=== PATIENT | female | born 1945 | race Two or more races ===

== ENCOUNTER 2022-07-02 11:36 | Inpatient (IN) | payer OTHER ==
[~2022-07-02] VITALS: Ht 170.2 cm; Wt 84.4 kg
[2022-07-02] MEDS ORDERED: LEVOTHYROXINE25 MCG PO (11:43)
[2022-07-02] MEDS ORDERED: HYZAAR 100-12.1 EACH PO (11:43)
--- NOTE | 2022-07-02 11:44 | NUR ---
SE RECIBE PTE ALERTA Y ORIENTADA X3 CUAL REFIERE DOLOR ABDMINAL LADO IZQ CUADRANTE INFERIOR RELACIONADO A HX DE DIVERTICULOS. SE ENMA S/V Y SE UBICA. PTE DE .
--- NOTE | 2022-07-02 13:01 | NUR ---
PTE LLEGA EN AMBULANCIA POR DOOLOR ABDOMINAL SE ACOMODA EN MAE .SE OBSERVA PTE CON IVF;S PATENTE . ES EVALUADA POR EL ,SAMUEL TOM ORDENA TREATAMIENTOA LA CUAL SE EJECUTA POR MS.ORTIZ URIBE . SE MANTIENE BAJO OBSERVAICON.
== END 2022-07-05 16:21 | disposition home or self-care (01) | DRG 392 ==
LOC: ER 11:36 → MEDI 20:27
PROVIDERS: ADMIT Internal Medicine; ATTEND Internal Medicine
PROC: BW21ZZZ Computerized Tomography (CT Scan) of Abdomen and Pelvis (ICD-10-PCS; principal; 2022-07-02)
DX: K57.20 Diverticulitis of large intestine with perforation and abscess without bleeding (principal); I10 Essential (primary) hypertension; E03.9 Hypothyroidism, unspecified; D64.9 Anemia, unspecified

== ENCOUNTER 2022-08-06 13:47 | Inpatient (IN) | payer OTHER ==
[~2022-08-06] VITALS: Ht 170.2 cm; Wt 83.0 kg
[~2022-08-06 13:47] MED LIST: HYZAAR 100-12.1 EACH PO; LEVOTHYROXINE25 MCG PO
== END 2022-08-13 15:59 | disposition home or self-care (01) | DRG 291 ==
LOC: ER 13:47 → MEDJ 22:12
PROVIDERS: ADMIT Internal Medicine; ATTEND Internal Medicine
PROC: 4A12X4Z Monitoring of Cardiac Electrical Activity, External Approach (ICD-10-PCS; principal; 2022-08-06)
PROC: B24BYZZ Ultrasonography of Heart with Aorta using Other Contrast (ICD-10-PCS; 2022-08-06)
PROC: BW2410Z Computerized Tomography (CT Scan) of Chest and Abdomen using Low Osmolar Contrast, Unenhanced and Enhanced (ICD-10-PCS; 2022-08-08)
PROC: B54DZZZ Ultrasonography of Bilateral Lower Extremity Veins (ICD-10-PCS; 2022-08-10)
DX: I11.0 Hypertensive heart disease with heart failure (principal); I26.99 Other pulmonary embolism without acute cor pulmonale; I50.31 Acute diastolic (congestive) heart failure; E87.21 Acute metabolic acidosis; I82.4Z3 Acute embolism and thrombosis of unspecified deep veins of distal lower extremity, bilateral; D63.8 Anemia in other chronic diseases classified elsewhere; D64.9 Anemia, unspecified; E03.9 Hypothyroidism, unspecified; Z86.16 Personal history of COVID-19; I27.20 Pulmonary hypertension, unspecified
CPT/HCPCS: 71275

== ENCOUNTER 2022-12-01 09:15 | Outpatient (CLI) | payer OTHER | END 2022-12-01 09:33 | disposition home or self-care (01) | LOC: TOM 09:15 | PROVIDERS: ATTEND Surgery | DX: R10.11 Right upper quadrant pain (principal) | CPT/HCPCS: 74178; Q9965 ==

== ENCOUNTER 2023-05-14 08:58 | Outpatient (CLI) | payer OTHER | END 2023-05-14 09:04 | disposition home or self-care (01) | LOC: NUCLEAR 08:58 | PROVIDERS: ATTEND Internal Medicine Hematology & Oncology | DX: D53.0 Protein deficiency anemia (principal); D51.3 Other dietary vitamin B12 deficiency anemia; D50.8 Other iron deficiency anemias; E55.9 Vitamin D deficiency, unspecified; R97.0 Elevated carcinoembryonic antigen [CEA]; B96.81 Helicobacter pylori [H. pylori] as the cause of diseases classified elsewhere; K57.30 Diverticulosis of large intestine without perforation or abscess without bleeding; I10 Essential (primary) hypertension; R92.0 Mammographic microcalcification found on diagnostic imaging of breast; E11.9 Type 2 diabetes mellitus without complications; M54.50 Low back pain, unspecified; N63.23 Unspecified lump in the left breast, lower outer quadrant ==

== ENCOUNTER 2024-03-16 06:43 | Day surgery (SDC) | payer OTHER ==
[2024-03-16] MEDS ORDERED: fentaNYL CITRATE 50 MCG/ML AMPUL IV ONE (07:45)
[2024-03-16] MEDS ORDERED: MIDAZOLAM HCL 2 MG/2 ML VIAL IV ONE (07:45)
[2024-03-16] MEDS ORDERED: DIPHENHYDRAMINE HCL 50 MG/ML VIAL 1ML IV ONE (07:45)
== END 2024-03-16 10:15 | disposition home or self-care (01) ==
LOC: AMB-ENDOS 06:43
PROVIDERS: ATTEND Surgery
DX: K57.30 Diverticulosis of large intestine without perforation or abscess without bleeding (principal); K62.5 Hemorrhage of anus and rectum; R19.4 Change in bowel habit; K63.2 Fistula of intestine

== ENCOUNTER → 2024-05-23 | Outpatient (CLI) | payer OTHER | END | disposition home or self-care (01) | LOC: MAMO-SONO 09:55 | PROVIDERS: ATTEND Internal Medicine Hematology & Oncology | DX: N63.0 Unspecified lump in unspecified breast (principal); Z12.31 Encounter for screening mammogram for malignant neoplasm of breast; N64.4 Mastodynia; D53.0 Protein deficiency anemia; D51.3 Other dietary vitamin B12 deficiency anemia; D50.8 Other iron deficiency anemias; E55.9 Vitamin D deficiency, unspecified; B96.81 Helicobacter pylori [H. pylori] as the cause of diseases classified elsewhere; K57.30 Diverticulosis of large intestine without perforation or abscess without bleeding; I10 Essential (primary) hypertension; R92.0 Mammographic microcalcification found on diagnostic imaging of breast; E11.9 Type 2 diabetes mellitus without complications; M54.50 Low back pain, unspecified; N63.23 Unspecified lump in the left breast, lower outer quadrant; N63.10 Unspecified lump in the right breast, unspecified quadrant; N63.20 Unspecified lump in the left breast, unspecified quadrant; I26.99 Other pulmonary embolism without acute cor pulmonale ==

== ENCOUNTER 2024-07-24 08:08 | Outpatient (CLI) | payer OTHER ==
[2024-07-27 10:05] LABS: BETA-2-MICROGLOBULINA 1.8 mg/L (0.6-2.4)
== END 2024-07-24 08:09 | disposition home or self-care (01) ==
LOC: LAB 08:08
PROVIDERS: ATTEND Internal Medicine Hematology & Oncology
DX: D50.8 Other iron deficiency anemias (principal); D53.0 Protein deficiency anemia; D51.3 Other dietary vitamin B12 deficiency anemia; E55.9 Vitamin D deficiency, unspecified; R97.0 Elevated carcinoembryonic antigen [CEA]; B96.81 Helicobacter pylori [H. pylori] as the cause of diseases classified elsewhere; K57.30 Diverticulosis of large intestine without perforation or abscess without bleeding; I10 Essential (primary) hypertension; R92.0 Mammographic microcalcification found on diagnostic imaging of breast; E11.9 Type 2 diabetes mellitus without complications; M54.50 Low back pain, unspecified; N63.23 Unspecified lump in the left breast, lower outer quadrant; N63.10 Unspecified lump in the right breast, unspecified quadrant; N63.20 Unspecified lump in the left breast, unspecified quadrant; I26.99 Other pulmonary embolism without acute cor pulmonale; I80.222 Phlebitis and thrombophlebitis of left popliteal vein

== ENCOUNTER 2024-12-19 08:37 | Emergency (ER) | payer OTHER ==
[~2024-12-19] VITALS: Ht 167.6 cm; Wt 95.3 kg
[2024-12-19] MEDS ORDERED: LEVALBUTEROL HCL 1.25 MG/3 ML SOLUTION IH STA (09:59)
[2024-12-19 10:37] LABS: BASO % 0.7 % (0.1-1.2); EOS # 0.07 (0.04-0.54); HEMATOCRIT 41.4 % (34.1-44.9); HEMOGLOBIN 13.3 g/dL (11.2-15.7); LYMPH # 1.13 (1.18-3.74); LYMPH % 16.5 % (19.3-53.1); MEAN CORPUSCULAR HEMOGLOBIN 29.2 pg (25.6-32.2); MONO # 0.47 (0.24-0.82); MONO % 6.9 % (4.7-12.5); NEUT % 74.6 % (34.0-71.1); PLATELET COUNT 365 K/uL (163-369); RED BLOOD COUNT 4.56 M/uL (3.93-5.22); RED CELL DISTRIBUTION WIDTH 14.4 % (11.6-14.4)
[2024-12-19] MEDS ORDERED: LEVALBUTEROL HCL 0.63 MG/3 ML SOLUTION IH ONE (11:05)
[2024-12-19 11:23] LABS: CALCIUM 9.1 mg/dL (8.5-10.1); CREATININE SERUM 0.89 mg/dL (0.55-1.02); GFR 61.02; POTASSIUM 4.1 mEq/L (3.5-5.1)
[2024-12-19 11:26] LABS: ABG PH 7.432 (7.35-7.45); ABG PO2 69.4 mmHg (80-100); ABG pCO2 34.7 mmHg (35-45); BASE EXCESS -0.9 mmol/l; BICARBONATE 22.7 mmol/l (23-25); SaO2 94.2 %; Tco2 23.7 mmol/l
[2024-12-19 11:53] LABS: allen test SATISFACTORY; mode ROOM AIR; o2 21 %; puncture site RADIAL RIGHT
[2024-12-19] MEDS ORDERED: FUROsemide 20 MG/2 ML VIAL IV STA (16:18)
[2024-12-19] MEDS ORDERED: FUROsemide 20 MG/2 ML VIAL ONE (16:27)
== END 2024-12-19 16:58 | disposition home or self-care (01) ==
LOC: ER 08:37
PROVIDERS: General Practice
DX: R06.02 Shortness of breath (principal); R53.83 Other fatigue; I10 Essential (primary) hypertension; Z91.013 Allergy to seafood; E11.9 Type 2 diabetes mellitus without complications; Z86.72 Personal history of thrombophlebitis
CPT/HCPCS: 36415; 71260; 82803; 93005; 93970; 94640; 99284; Q9965

== ENCOUNTER 2025-01-25 09:46 | Outpatient (CLI) | payer OTHER | END 2025-01-25 09:55 | disposition home or self-care (01) | LOC: MRI 09:46 | PROVIDERS: ATTEND Psychiatry & Neurology Clinical Neurophysiology | DX: F01.50 Vascular dementia, unspecified severity, without behavioral disturbance, psychotic disturbance, mood disturbance, and anxiety (principal) | CPT/HCPCS: 70551 ==

== ENCOUNTER 2025-02-06 08:05 | Outpatient (CLI) | payer OTHER ==
[~2025-02-06 08:05] MED LIST changes: +ELIQUIS5 MG PO; +FEOSOL325 MG PO; +HYOSCYAMINE0.125 M1 SL; +INTESTINEX680 M1 PO; +LASIX20 MG PO; +NEURONTIN300 MG; +NEURONTIN600 M1; +TOPROL XL50 M1 PO; +XARELTO15 MG PO; +XARELTO20 MG PO
[2025-02-08 17:08] LABS: beta 2 gly iga < 9 (0-25); beta 2 gly igg < 9 (0-20); beta 2 gly igm < 9 (0-32)
== END 2025-02-06 08:18 | disposition home or self-care (01) ==
LOC: LAB 08:05
PROVIDERS: ATTEND Internal Medicine Hematology & Oncology
DX: D50.8 Other iron deficiency anemias (principal); D53.0 Protein deficiency anemia; D51.3 Other dietary vitamin B12 deficiency anemia; E55.9 Vitamin D deficiency, unspecified; R97.0 Elevated carcinoembryonic antigen [CEA]; B96.81 Helicobacter pylori [H. pylori] as the cause of diseases classified elsewhere; K57.30 Diverticulosis of large intestine without perforation or abscess without bleeding; I10 Essential (primary) hypertension; R92.0 Mammographic microcalcification found on diagnostic imaging of breast; E11.9 Type 2 diabetes mellitus without complications; M54.50 Low back pain, unspecified; N63.23 Unspecified lump in the left breast, lower outer quadrant; N63.10 Unspecified lump in the right breast, unspecified quadrant; I26.99 Other pulmonary embolism without acute cor pulmonale; I80.222 Phlebitis and thrombophlebitis of left popliteal vein; I70.213 Atherosclerosis of native arteries of extremities with intermittent claudication, bilateral legs; D68.61 Antiphospholipid syndrome; E72.12 Methylenetetrahydrofolate reductase deficiency

== ENCOUNTER → 2025-02-16 07:39 | Outpatient (CLI) | payer OTHER | END | disposition home or self-care (01) | LOC: NUCLEAR 07:39 | PROVIDERS: ATTEND Internal Medicine Hematology & Oncology | DX: I70.213 Atherosclerosis of native arteries of extremities with intermittent claudication, bilateral legs (principal); I82.403 Acute embolism and thrombosis of unspecified deep veins of lower extremity, bilateral; I87.2 Venous insufficiency (chronic) (peripheral) ==

== ENCOUNTER 2025-02-19 07:35 | Outpatient (CLI) | payer OTHER | END 2025-02-19 07:41 | disposition home or self-care (01) | LOC: NUCLEAR 07:35 | PROVIDERS: ATTEND Internal Medicine Hematology & Oncology | DX: I70.213 Atherosclerosis of native arteries of extremities with intermittent claudication, bilateral legs (principal) ==

== ENCOUNTER 2025-02-21 08:00 | Outpatient (CLI) | payer OTHER | END 2025-02-21 08:06 | disposition home or self-care (01) | LOC: TOM 08:00 | PROVIDERS: ATTEND Internal Medicine Hematology & Oncology | DX: D50.8 Other iron deficiency anemias (principal); D53.0 Protein deficiency anemia; D51.3 Other dietary vitamin B12 deficiency anemia; E55.9 Vitamin D deficiency, unspecified; R97.0 Elevated carcinoembryonic antigen [CEA]; B96.81 Helicobacter pylori [H. pylori] as the cause of diseases classified elsewhere; K57.30 Diverticulosis of large intestine without perforation or abscess without bleeding; I10 Essential (primary) hypertension; R92.0 Mammographic microcalcification found on diagnostic imaging of breast; E11.9 Type 2 diabetes mellitus without complications; M54.50 Low back pain, unspecified; N63.23 Unspecified lump in the left breast, lower outer quadrant; N63.10 Unspecified lump in the right breast, unspecified quadrant; N63.20 Unspecified lump in the left breast, unspecified quadrant; I26.99 Other pulmonary embolism without acute cor pulmonale; I80.222 Phlebitis and thrombophlebitis of left popliteal vein; I70.213 Atherosclerosis of native arteries of extremities with intermittent claudication, bilateral legs | CPT/HCPCS: 71270; Q9965 ==

== ENCOUNTER → 2025-06-14 | Outpatient (CLI) | payer OTHER | END | disposition home or self-care (01) | LOC: MAMO-SONO 09:12 | PROVIDERS: ATTEND Internal Medicine Hematology & Oncology | DX: N64.4 Mastodynia (principal); N63.0 Unspecified lump in unspecified breast; N63.23 Unspecified lump in the left breast, lower outer quadrant; N63.10 Unspecified lump in the right breast, unspecified quadrant; D50.9 Iron deficiency anemia, unspecified; E55.9 Vitamin D deficiency, unspecified; I10 Essential (primary) hypertension; I80.222 Phlebitis and thrombophlebitis of left popliteal vein; I70.213 Atherosclerosis of native arteries of extremities with intermittent claudication, bilateral legs; E72.11 Homocystinuria; E72.12 Methylenetetrahydrofolate reductase deficiency; D53.0 Protein deficiency anemia; B96.81 Helicobacter pylori [H. pylori] as the cause of diseases classified elsewhere; E11.9 Type 2 diabetes mellitus without complications; D51.3 Other dietary vitamin B12 deficiency anemia; K57.30 Diverticulosis of large intestine without perforation or abscess without bleeding; M54.50 Low back pain, unspecified; I26.99 Other pulmonary embolism without acute cor pulmonale; R97.0 Elevated carcinoembryonic antigen [CEA]; R92.0 Mammographic microcalcification found on diagnostic imaging of breast; Z12.31 Encounter for screening mammogram for malignant neoplasm of breast ==